=== PATIENT | female | born 1935 | race Caucasian/White ===

== ENCOUNTER 2022-01-10 04:32 | Day surgery (SDC) | payer OTHER, BC ==
[2022-01-06 09:36] VITALS: BMI 25.8
[~2022-01-10 04:32] MED LIST: BUPIVACAINE HCL/PF 0.75% 10 ML VIAL NR ONE
[2022-01-10] MEDS ORDERED: LIDOCAINE HCL/PF 1% SDV 5ML VIAL ONE ×2 (07:35→11:57)
[2022-01-10] MEDS ORDERED: DEXAMETHASONE SOD PHOSPHATE 10 MG/1 ML VIAL ONE (11:57)
[2022-01-10] MEDS ORDERED: LIDOCAINE HCL 1% PRESERVATIVE FREE - 30ML VIAL IJ ONE (13:20)
[2022-01-10] MEDS ORDERED: IOHEXOL 180 MG/1 ML ML IJ ONE (13:22)
[2022-01-10] MEDS ORDERED: BUPIVACAINE HCL/PF 0.75% 10 ML VIAL NR ONE (13:26)
[2022-01-10 14:40] VITALS: BP 162/65; PULSE 58; TEMP 98.1
== END 2022-01-10 14:12 | disposition home or self-care (01) ==
LOC: JASU-SURG 04:32
PROVIDERS: ATTEND Pain Medicine Pain Medicine
PROC: BR16YZZ Fluoroscopy of Lumbar Facet Joint(s) using Other Contrast (ICD-10-PCS; 2022-01-10)
PROC: 3E0T3BZ Introduction of Anesthetic Agent into Peripheral Nerves and Plexi, Percutaneous Approach (ICD-10-PCS; principal; 2022-01-10 13:30)
DX: M47.816 Spondylosis without myelopathy or radiculopathy, lumbar region (principal); I10 Essential (primary) hypertension
CPT/HCPCS: 76000-TC-FY; J1100

== ENCOUNTER 2022-02-14 04:19 | Day surgery (SDC) | payer OTHER, BC ==
[2022-02-13 11:02] VITALS: BMI 25.8
[2022-02-14] MEDS ORDERED: BUPIVACAINE HCL/PF 0.75% 10 ML VIAL ONE (07:16)
[2022-02-14] MEDS ORDERED: LIDOCAINE HCL/PF 1% SDV 5ML VIAL ONE (07:16)
[2022-02-14] MEDS ORDERED: LIDOCAINE HCL 1%, 10 MG/ML (50 mL VIAL) NR ONE (09:10)
[2022-02-14] MEDS ORDERED: BUPIVACAINE HCL/PF 0.75% 10 ML VIAL NR ONE (09:11)
[2022-02-14 09:41] VITALS: BP 139/79; PULSE 50; TEMP 97.4
== END 2022-02-14 10:00 | disposition home or self-care (01) ==
LOC: JASU-SURG 04:19
PROVIDERS: ATTEND Pain Medicine Pain Medicine
PROC: BR16ZZZ Fluoroscopy of Lumbar Facet Joint(s) (ICD-10-PCS; 2022-02-14)
PROC: 3E0T3BZ Introduction of Anesthetic Agent into Peripheral Nerves and Plexi, Percutaneous Approach (ICD-10-PCS; principal; 2022-02-14 09:30)
DX: M47.816 Spondylosis without myelopathy or radiculopathy, lumbar region (principal); I25.10 Atherosclerotic heart disease of native coronary artery without angina pectoris; I10 Essential (primary) hypertension; Z95.5 Presence of coronary angioplasty implant and graft
CPT/HCPCS: 76000-TC-FY

== ENCOUNTER 2022-03-14 04:48 | Day surgery (SDC) | payer OTHER, BC ==
[2022-03-09 12:05] VITALS: BMI 25.8
[2022-03-14] MEDS ORDERED: LIDOCAINE HCL/PF 1% SDV 5ML VIAL ONE (07:10)
[2022-03-14] MEDS ORDERED: BUPIVACAINE HCL/PF 0.75% 10 ML VIAL ONE (07:10)
[2022-03-14] MEDS ORDERED: LIDOCAINE HCL/PF 2% SDV 5ML VIAL ONE (07:15)
[2022-03-14] MEDS ORDERED: DEXAMETHASONE SOD PHOSPHATE 10 MG/1 ML VIAL ONE (11:18)
[2022-03-14 13:40] VITALS: BP 180/78; PULSE 51; TEMP 97.2
== END 2022-03-14 13:30 | disposition home or self-care (01) ==
LOC: JASU-SURG 04:48
PROVIDERS: ATTEND Pain Medicine Pain Medicine
DX: Z53.8 Procedure and treatment not carried out for other reasons (principal)
CPT/HCPCS: J1100

== ENCOUNTER 2022-03-17 04:41 | Day surgery (SDC) | payer OTHER, BC ==
[2022-03-16 10:24] VITALS: BMI 25.8
[2022-03-17] MEDS ORDERED: BUPIVACAINE HCL/PF 0.25% (2.5MG/ML) 10 ML VIAL ONE (07:50)
[2022-03-17] MEDS ORDERED: LIDOCAINE HCL/PF 1% SDV 5ML VIAL ONE (07:51)
[2022-03-17] MEDS ORDERED: DEXAMETHASONE SOD PHOSPHATE 10 MG/1 ML VIAL ONE (07:51)
[2022-03-17 10:22] VITALS: BP 113/78; PULSE 70; TEMP 98.3
== END 2022-03-17 15:05 | disposition home or self-care (01) ==
LOC: JASU-SURG 04:41
PROVIDERS: ATTEND Pain Medicine Pain Medicine
DX: Z53.8 Procedure and treatment not carried out for other reasons (principal)
CPT/HCPCS: J1100

== ENCOUNTER 2022-04-25 04:20 | Day surgery (SDC) | payer OTHER, BC ==
[2022-04-25] MEDS ORDERED: LIDOCAINE HCL/PF 1% SDV 5ML VIAL ONE (07:26)
[2022-04-25] MEDS ORDERED: BUPIVACAINE HCL/PF 0.75% 10 ML VIAL ONE (07:28)
[2022-04-25] MEDS ORDERED: DEXAMETHASONE SOD PHOSPHATE 10 MG/1 ML VIAL ONE (07:28)
== END 2022-04-25 08:44 | disposition home or self-care (01) ==
LOC: JASU-SURG 04:20
PROVIDERS: ATTEND Pain Medicine Pain Medicine
DX: Z53.8 Procedure and treatment not carried out for other reasons (principal)
CPT/HCPCS: J1100

== ENCOUNTER 2022-05-09 04:15 | Day surgery (SDC) | payer OTHER, BC ==
[2022-04-27 14:07] VITALS: BMI 25.8
[2022-05-09] MEDS ORDERED: BUPIVACAINE HCL/PF 0.75% 10 ML VIAL ONE (07:08)
[2022-05-09] MEDS ORDERED: LIDOCAINE HCL/PF 1% SDV 5ML VIAL ONE (07:08)
[2022-05-09] MEDS ORDERED: DEXAMETHASONE SOD PHOSPHATE 10 MG/1 ML VIAL ONE (07:09)
[2022-05-09] MEDS ORDERED: BUPIVACAINE HCL/PF 0.75% 10 ML VIAL NR ONE (08:56)
[2022-05-09] MEDS ORDERED: LIDOCAINE HCL/PF 2% SDV 5ML VIAL PNB ONE (08:56)
[2022-05-09] MEDS ORDERED: LIDOCAINE 1% P/F 10 MG/ML VIAL PNB ONE (08:56)
[2022-05-09] MEDS ORDERED: DEXAMETHASONE SOD PHOSPHATE 10 MG/1 ML VIAL IVPUSH ONE (08:56)
[2022-05-09 10:17] VITALS: TEMP 98.8
[2022-05-09 10:24] VITALS: BP 160/70; PULSE 60; RESP 18
== END 2022-05-09 10:10 | disposition home or self-care (01) ==
LOC: JASU-SURG 04:15
PROVIDERS: ATTEND Pain Medicine Pain Medicine
PROC: 3E0T3TZ Introduction of Destructive Agent into Peripheral Nerves and Plexi, Percutaneous Approach (ICD-10-PCS; principal; 2022-05-09 08:30)
DX: M47.816 Spondylosis without myelopathy or radiculopathy, lumbar region (principal)
CPT/HCPCS: 76000-TC-FY; J1100

== ENCOUNTER 2022-06-20 04:14 | Day surgery (SDC) | payer OTHER, BC ==
[2022-06-16 13:32] VITALS: BMI 25.8
[2022-06-20] MEDS ORDERED: BUPIVACAINE HCL/PF 0.75% 10 ML VIAL ONE (07:48)
[2022-06-20] MEDS ORDERED: LIDOCAINE HCL/PF 1% SDV 5ML VIAL ONE (07:48)
[2022-06-20 09:15] VITALS: RESP 20
[2022-06-20] MEDS ORDERED: LIDOCAINE HCL 1% PRESERVATIVE FREE - 30ML VIAL IJ ONE (10:38)
[2022-06-20] MEDS ORDERED: BUPIVACAINE HCL/PF 0.75% 10 ML VIAL NR ONE ×2 (10:42→10:59)
[2022-06-20] MEDS ORDERED: LIDOCAINE HCL 2% (50ML VIAL) NR ONE (10:42)
[2022-06-20] MEDS ORDERED: DEXAMETHASONE SOD PHOSPHATE 10 MG/1 ML VIAL IVPUSH ONE ×2 (10:43→11:03)
[2022-06-20 11:25] VITALS: BP 156/66; PULSE 50; TEMP 98
== END 2022-06-20 11:45 | disposition home or self-care (01) ==
LOC: JASU-SURG 04:14
PROVIDERS: ATTEND Pain Medicine Pain Medicine
PROC: 3E0T3TZ Introduction of Destructive Agent into Peripheral Nerves and Plexi, Percutaneous Approach (ICD-10-PCS; principal; 2022-06-20 10:30)
DX: M47.816 Spondylosis without myelopathy or radiculopathy, lumbar region (principal)
CPT/HCPCS: 76000-TC-FY; J1100

== ENCOUNTER 2022-08-15 04:24 | Day surgery (SDC) | payer OTHER, BC ==
[2022-08-11 15:02] VITALS: BMI 25.8
[2022-08-15] MEDS ORDERED: LIDOCAINE HCL/PF 1% SDV 5ML VIAL ONE (07:47)
[2022-08-15] MEDS ORDERED: DEXAMETHASONE SOD PHOSPHATE 10 MG/1 ML VIAL ONE (07:48)
[2022-08-15 09:12] VITALS: RESP 18
[2022-08-15] MEDS ORDERED: LIDOCAINE 1% P/F 10 MG/ML VIAL INF ONE (10:11)
[2022-08-15] MEDS ORDERED: DEXAMETHASONE SOD PHOSPHATE 10 MG/1 ML VIAL IVPUSH ONE (10:12)
[2022-08-15] MEDS ORDERED: IOHEXOL 180 MG/1 ML ML IJ ONE (10:12)
[2022-08-15 10:53] VITALS: TEMP 98
[2022-08-15 10:54] VITALS: BP 120/76; PULSE 59
== END 2022-08-15 10:55 | disposition home or self-care (01) ==
LOC: JASU-SURG 04:24
PROVIDERS: ATTEND Pain Medicine Pain Medicine
PROC: 3E0R33Z Introduction of Anti-inflammatory into Spinal Canal, Percutaneous Approach (ICD-10-PCS; 2022-08-15)
PROC: B01BYZZ Fluoroscopy of Spinal Cord using Other Contrast (ICD-10-PCS; 2022-08-15)
PROC: 3E0R3BZ Introduction of Anesthetic Agent into Spinal Canal, Percutaneous Approach (ICD-10-PCS; principal; 2022-08-15 10:30)
DX: M54.16 Radiculopathy, lumbar region (principal); M48.061 Spinal stenosis, lumbar region without neurogenic claudication
CPT/HCPCS: 76000-TC-FY; J1100

== ENCOUNTER 2022-11-07 04:24 | Day surgery (SDC) | payer OTHER, BC ==
[2022-10-19 13:33] VITALS: BMI 25.8
[~2022-11-07 04:24] MED LIST changes: -BUPIVACAINE HCL/PF 0.75% 10 ML VIAL NR ONE; +DEXAMETHASONE SOD PHOSPHATE 10 MG/1 ML VIAL IVPUSH ONE; +IOHEXOL 180 MG/1 ML ML IJ ONE; +LIDOCAINE 1% P/F 10 MG/ML VIAL INF ONE; +LIDOCAINE HCL/PF 2% SDV 5ML VIAL INF ONE
[2022-11-07] MEDS ORDERED: LIDOCAINE HCL/PF 1% SDV 5ML VIAL ONE (11:23)
[2022-11-07] MEDS ORDERED: LIDOCAINE HCL/PF 2% SDV 5ML VIAL ONE (11:23)
[2022-11-07] MEDS ORDERED: PROPOFOL 20 ML ONE (12:25)
[2022-11-07] MEDS ORDERED: DEXAMETHASONE SOD PHOSPHATE 10 MG/1 ML VIAL ONE (12:39)
[2022-11-07] MEDS ORDERED: ceFAZolin SODIUM 1 GM VIAL IVPB ONE (12:49)
[2022-11-07] MEDS ORDERED: ONDANSETRON 4 MG/2 ML VIAL ONE (12:58)
[2022-11-07] MEDS ORDERED: LIDOCAINE 1% P/F 10 MG/ML VIAL INF ONE (13:03)
[2022-11-07] MEDS ORDERED: LIDOCAINE HCL/PF 2% SDV 5ML VIAL INF ONE (13:06)
[2022-11-07] MEDS ORDERED: IOHEXOL 180 MG/1 ML ML IJ ONE (14:03)
[2022-11-07] MEDS ORDERED: DEXAMETHASONE SOD PHOSPHATE 10 MG/1 ML VIAL IVPUSH ONE (14:03)
[2022-11-07 15:08] VITALS: RESP 16
[2022-11-07 15:15] VITALS: BP 165/75; PULSE 62; TEMP 97.7
== END 2022-11-07 15:10 | disposition home or self-care (01) ==
LOC: JASU-SURG 04:24
PROVIDERS: ATTEND Pain Medicine Pain Medicine
PROC: 00NY3ZZ Release Lumbar Spinal Cord, Percutaneous Approach (ICD-10-PCS; principal; 2022-11-07 12:30)
DX: M48.062 Spinal stenosis, lumbar region with neurogenic claudication (principal)
CPT/HCPCS: 0275T; C1889; 76000-TC-FY; 88304-TC; 88311-TC; J1100

== ENCOUNTER 2023-03-15 11:12 | Emergency (ER) | payer OTHER, BC ==
[2023-03-15 11:46] VITALS: BMI 24.3
[2023-03-15] MEDS ORDERED: ACETAMINOPHEN 500 MG TABLET (FP) PO ONE (13:58)
[2023-03-15] MEDS ORDERED: KETOROLAC TROMETHAMINE 15 MG/ML VIAL IM ONE (13:58)
[2023-03-15] MEDS ORDERED: ACETAMINOPHEN 325 MG TABLET (FP) ONE (14:02)
[2023-03-15] MEDS ORDERED: KETOROLAC TROMETHAMINE 15 MG/ML VIAL ONE (14:02)
[2023-03-15 15:53] VITALS: BP 140/64; PULSE 67; RESP 18; TEMP 97.6
== END 2023-03-15 16:45 | disposition home or self-care (01) ==
LOC: JER 11:12
PROC: 3E0233Z Introduction of Anti-inflammatory into Muscle, Percutaneous Approach (ICD-10-PCS; principal; 2023-03-15)
DX: M79.604 Pain in right leg (principal); M19.90 Unspecified osteoarthritis, unspecified site; R26.81 Unsteadiness on feet
CPT/HCPCS: 99284-25

== ENCOUNTER 2023-03-16 06:00 | Day surgery (SDC) | payer OTHER, BC ==
[2023-03-16] MEDS ORDERED: ACETAMINOPHEN 500 MG TABLET (FP) PO PRN (08:57)
[2023-03-16 09:40] VITALS: BMI 25.8
[2023-03-16 11:14] VITALS: RESP 18
[2023-03-16] MEDS ORDERED: LIDOCAINE HCL 1% PRESERVATIVE FREE - 30ML VIAL IJ ONE ×2 (13:13)
[2023-03-16 15:08] VITALS: TEMP 97.5
[2023-03-16 15:11] VITALS: BP 111/49; PULSE 57
== END 2023-03-16 15:05 | disposition home or self-care (01) ==
LOC: JASU-SURG 06:00
PROVIDERS: ATTEND Pain Medicine Pain Medicine
PROC: 01HY3MZ Insertion of Neurostimulator Lead into Peripheral Nerve, Percutaneous Approach (ICD-10-PCS; principal; 2023-03-16 12:30)
DX: G89.4 Chronic pain syndrome (principal); M25.561 Pain in right knee
CPT/HCPCS: 64555; C1778

== ENCOUNTER 2023-04-12 20:02 | Inpatient (IN) | payer OTHER, BC ==
[2023-04-12 20:10] VITALS: BMI 23.1
[2023-04-12] MEDS ORDERED: ACETAMINOPHEN 1000 MG/100 ML BAG IVPB ONE (20:39)
[2023-04-12] MEDS ORDERED: LACTATED RINGERS SOLUTION 1000 ML INFUS.BAG IV ONE (20:39)
[2023-04-12] MEDS ORDERED: ACETAMINOPHEN INJECTION 100 ML IVPB ONE (20:59)
[2023-04-12 21:12] LABS: BASO % 0.4 % (0-2.0); EOS % 0.5 % (0-4.5); HEMATOCRIT 31.7 % (32.4-45.2); HEMOGLOBIN 10.4 GM/dL (10.7-15.3); LYMPH % 17.5 % (8-40); MCH 31.4 pg (25.7-33.7); MCHC 32.8 g/dl (32.0-36.0); MEAN CELL VOLUME 95.6 fl (80-96); MEAN PLT VOLUME 7.7 fl (7.5-11.1); MONO % 11.5 % (3.8-10.2); NEUT % 70.1 % (42.8-82.8); PLATELET COUNT 306 10^3/uL (134-434); RBC 3.32 M/mm3 (3.60-5.2); RDW 15.5 % (11.6-15.6); WHITE BLOOD COUNT 15.5 K/mm3 (4.0-10.0)
[2023-04-12 21:22] LABS: INR 0.99 (0.83-1.09); PROTHROMBIN TIME (PATIENT) 11.5 SEC (9.7-13.0)
[2023-04-12 21:24] LABS: ACTIVATED PTT 26.9 SECONDS (25.2-36.5)
[2023-04-12 21:57] LABS: POTASSIUM 4.7 mmol/L (3.5-5.1)
[2023-04-12 21:59] LABS: CALCIUM 8.9 mg/dL (8.5-10.1)
[2023-04-12 22:00] LABS: ALBUMIN 2.6 g/dl (3.4-5.0); BLOOD UREA NITROGEN 40.2 mg/dL (7-18)
[2023-04-12 22:03] LABS: CREATININE 1.8 mg/dL (0.55-1.3)
[2023-04-12 22:04] LABS: BILIRUBIN,TOTAL 0.4 mg/dL (0.2-1)
[2023-04-12 22:05] LABS: TOT PROT 5.9 g/dl (6.4-8.2)
[2023-04-12] MEDS ORDERED: PIPERACILLIN/TAZOB 4.5 GM 4.5 GM in DEXTROSE 5%-WATER 100 ML IVPB ONE (22:11)
[2023-04-12] MEDS ORDERED: PIPERACILLIN/TAZOB 4.5 GM 4.5 GM/100 ML BAG IVPB ONE (22:16)
[2023-04-12 23:48] LABS: EPI CELLS >36 /uL (0-25.1); HYALINE CASTS 745 /uL (0-3.1); URINE APPEARANCE TURBID; URINE BACTERIA 5595 /uL (0-1359); URINE BILIRUBIN NEGATIVE (NEGATIVE); URINE COLOR YELLOW; URINE GLUCOSE (UA) NEGATIVE (NEGATIVE); URINE KETONE NEGATIVE (NEGATIVE); URINE LEUK ESTERASE 3+ (NEGATIVE); URINE NITRITE POSITIVE (NEGATIVE); URINE PROTEIN 2+ (NEGATIVE); URINE UROBILINOGEN 0.2 mg/dL (0.2-1.0); URINE WBC 37470 /uL (0-25.8)
[2023-04-13] MEDS ORDERED: SODIUM CHLORIDE 1,000 ML IV SCH (02:15)
[2023-04-13] MEDS ORDERED: PIPERACILLIN/TAZOB 2.25 GM 2.25 GM in DEXTROSE 5%-WATER - 50 ML IVPB SCH ×3 (03:30→18:00)
[2023-04-13 08:51] LABS: BASO % 0.6 % (0-2.0); HEMATOCRIT 33.6 % (32.4-45.2); HEMOGLOBIN 10.9 GM/dL (10.7-15.3); LYMPH % 13.6 % (8-40); MCH 31.6 pg (25.7-33.7); MCHC 32.5 g/dl (32.0-36.0); MEAN CELL VOLUME 97.3 fl (80-96); MEAN PLT VOLUME 8.4 fl (7.5-11.1); MONO % 8.2 % (3.8-10.2); NEUT % 75.6 % (42.8-82.8); PLATELET COUNT 326 10^3/uL (134-434); RBC 3.45 M/mm3 (3.60-5.2); RDW 15.6 % (11.6-15.6); WHITE BLOOD COUNT 14.3 K/mm3 (4.0-10.0)
[2023-04-13 09:08] LABS: MAGNESIUM 2.2 mg/dL (1.8-2.4)
[2023-04-13 09:13] LABS: PHOSPHOROUS 3.4 mg/dL (2.5-4.9)
[2023-04-13] MEDS ORDERED: SERTRALINE HCL 25 MG TABLET (FP) PO SCH (10:00)
[2023-04-13] MEDS ORDERED: LACTOBACILLUS ACIDOPHILUS 1 TABLET PO SCH (10:00)
[2023-04-13] MEDS ORDERED: CALCIUM 500MG/VIT-D 200 UNITS COMBO TABLET (FP) PO SCH (10:00)
[2023-04-13] MEDS ORDERED: CHOLECALCIFEROL (VIT D3) 1,000 UNIT (25 MCG) TABLET PO SCH (10:00)
[2023-04-13] MEDS ORDERED: GABAPENTIN 300 MG CAPSULE PO SCH (10:00)
[2023-04-13 21:36] LABS: CALCIUM 8.8 mg/dL (8.5-10.1)
[2023-04-13] MEDS ORDERED: ATORVASTATIN CA 40 MG TABLET (FP) PO SCH (22:00)
[2023-04-13] MEDS ORDERED: amLODIPine BESYLATE 2.5 MG TABLET (FP) PO SCH (22:00)
[2023-04-13] MEDS ORDERED: ATENOLOL 50 MG TABLET (FP) PO SCH (22:00)
[2023-04-13] MEDS ORDERED: PANTOPRAZOLE SODIUM 40 MG VIAL IVPUSH SCH (22:00)
[2023-04-13] MEDS ORDERED: FAMOTIDINE 10 MG TABLET PO SCH (22:00)
[2023-04-14] MEDS ORDERED: SODIUM CHLORIDE 1,000 ML IV SCH (00:25)
[2023-04-14] MEDS: PIPERACILLIN/TAZOB 2.25 GM 2.25 GM in DEXTROSE 5%-WATER - 50 ML IVPB SCH ×5 (01:54→17:32)
[2023-04-14] MEDS ORDERED: PIPERACILLIN/TAZOB 2.25 GM 2.25 GM in DEXTROSE 5%-WATER - 50 ML IVPB SCH (03:00)
[2023-04-14] MEDS: SERTRALINE HCL 25 MG TABLET (FP) PO SCH (09:13)
[2023-04-14] MEDS: CHOLECALCIFEROL (VIT D3) 1,000 UNIT (25 MCG) TABLET PO SCH (09:13)
[2023-04-14] MEDS: PANTOPRAZOLE 40 MG TABLET PO SCH (09:14)
[2023-04-14] MEDS: GABAPENTIN 300 MG CAPSULE PO SCH (09:14)
[2023-04-14] MEDS: CALCIUM 500MG/VIT-D 200 UNITS COMBO TABLET (FP) PO SCH (09:14)
[2023-04-14] MEDS: LACTOBACILLUS ACIDOPHILUS 1 TABLET PO SCH (09:14)
[2023-04-14 09:59] LABS: BASO % 0.4 % (0-2.0); EOS % 2.4 % (0-4.5); HEMATOCRIT 30.8 % (32.4-45.2); HEMOGLOBIN 10.4 GM/dL (10.7-15.3); LYMPH % 16.3 % (8-40); MCHC 33.6 g/dl (32.0-36.0); MEAN CELL VOLUME 95.1 fl (80-96); MEAN PLT VOLUME 7.9 fl (7.5-11.1); MONO % 4.9 % (3.8-10.2); PLATELET COUNT 315 10^3/uL (134-434); RBC 3.24 M/mm3 (3.60-5.2); RDW 15.3 % (11.6-15.6); WHITE BLOOD COUNT 11.5 K/mm3 (4.0-10.0)
[2023-04-14] MEDS ORDERED: CEFTRIAXONE 1 GM in DEXTROSE 5%-WATER - 50 ML IVPB SCH (10:00)
[2023-04-14 10:19] LABS: POTASSIUM 3.9 mmol/L (3.5-5.1)
[2023-04-14 10:25] LABS: ALBUMIN 2.4 g/dl (3.4-5.0); BLOOD UREA NITROGEN 21.4 mg/dL (7-18); MAGNESIUM 1.9 mg/dL (1.8-2.4)
[2023-04-14 10:26] LABS: PHOSPHOROUS 2.6 mg/dL (2.5-4.9)
[2023-04-14 10:28] LABS: BILIRUBIN,TOTAL 0.5 mg/dL (0.2-1); CREATININE 0.9 mg/dL (0.55-1.3); TOT PROT 5.7 g/dl (6.4-8.2)
[2023-04-14] MEDS: MEROPENEM 1 GM in DEXTROSE 5%-WATER 100 ML IVPB SCH (17:48)
[2023-04-14 19:22] LABS: HEMATOCRIT 28.5 % (32.4-45.2); HEMOGLOBIN 9.7 GM/dL (10.7-15.3); MCH 32.3 pg (25.7-33.7); MCHC 33.9 g/dl (32.0-36.0); MEAN CELL VOLUME 95.2 fl (80-96); MEAN PLT VOLUME 8.1 fl (7.5-11.1); PLATELET COUNT 292 10^3/uL (134-434); RDW 15.5 % (11.6-15.6); WHITE BLOOD COUNT 11.3 K/mm3 (4.0-10.0)
[2023-04-14] MEDS: ATORVASTATIN CA 40 MG TABLET (FP) PO SCH (21:59)
[2023-04-14] MEDS: amLODIPine BESYLATE 2.5 MG TABLET (FP) PO SCH (22:00)
[2023-04-14] MEDS: ATENOLOL 50 MG TABLET (FP) PO SCH (22:00)
[2023-04-15] MEDS: MEROPENEM 1 GM in DEXTROSE 5%-WATER 100 ML IVPB SCH ×3 (02:08→17:07)
[2023-04-15] MEDS: PANTOPRAZOLE 40 MG TABLET PO SCH (10:14)
[2023-04-15] MEDS: CALCIUM 500MG/VIT-D 200 UNITS COMBO TABLET (FP) PO SCH (10:14)
[2023-04-15] MEDS: LACTOBACILLUS ACIDOPHILUS 1 TABLET PO SCH (10:14)
[2023-04-15] MEDS: CHOLECALCIFEROL (VIT D3) 1,000 UNIT (25 MCG) TABLET PO SCH (10:15)
[2023-04-15] MEDS: GABAPENTIN 300 MG CAPSULE PO SCH (10:15)
[2023-04-15] MEDS: SERTRALINE HCL 25 MG TABLET (FP) PO SCH (10:15)
[2023-04-15] MEDS: ATORVASTATIN CA 40 MG TABLET (FP) PO SCH (21:26)
[2023-04-15] MEDS: ATENOLOL 50 MG TABLET (FP) PO SCH (21:26)
[2023-04-15] MEDS: amLODIPine BESYLATE 2.5 MG TABLET (FP) PO SCH (21:26)
[2023-04-16] MEDS: MEROPENEM 1 GM in DEXTROSE 5%-WATER 100 ML IVPB SCH ×3 (01:54→17:19)
[2023-04-16 10:33] LABS: BASO % 0.8 % (0-2.0); EOS % 1.8 % (0-4.5); HEMOGLOBIN 10.7 GM/dL (10.7-15.3); LYMPH % 20.5 % (8-40); MCH 31.8 pg (25.7-33.7); MCHC 33.4 g/dl (32.0-36.0); MEAN CELL VOLUME 95.2 fl (80-96); MEAN PLT VOLUME 7.7 fl (7.5-11.1); MONO % 10.2 % (3.8-10.2); NEUT % 66.7 % (42.8-82.8); PLATELET COUNT 334 10^3/uL (134-434); RBC 3.36 M/mm3 (3.60-5.2); RDW 15.5 % (11.6-15.6); WHITE BLOOD COUNT 10.6 K/mm3 (4.0-10.0)
[2023-04-16 10:50] LABS: POTASSIUM 4.1 mmol/L (3.5-5.1)
[2023-04-16 10:51] LABS: ALBUMIN 2.2 g/dl (3.4-5.0)
[2023-04-16 10:54] LABS: CALCIUM 8.6 mg/dL (8.5-10.1)
[2023-04-16 10:55] LABS: BLOOD UREA NITROGEN 19.6 mg/dL (7-18)
[2023-04-16 10:56] LABS: BILIRUBIN,TOTAL 0.5 mg/dL (0.2-1)
[2023-04-16 10:57] LABS: TOT PROT 5.6 g/dl (6.4-8.2)
[2023-04-16 10:59] LABS: CREATININE 0.9 mg/dL (0.55-1.3)
[2023-04-16] MEDS: CHOLECALCIFEROL (VIT D3) 1,000 UNIT (25 MCG) TABLET PO SCH (11:34)
[2023-04-16] MEDS: PANTOPRAZOLE 40 MG TABLET PO SCH (11:34)
[2023-04-16] MEDS: GABAPENTIN 300 MG CAPSULE PO SCH (11:34)
[2023-04-16] MEDS: LACTOBACILLUS ACIDOPHILUS 1 TABLET PO SCH (11:35)
[2023-04-16] MEDS: SERTRALINE HCL 25 MG TABLET (FP) PO SCH (11:35)
[2023-04-16] MEDS: CALCIUM 500MG/VIT-D 200 UNITS COMBO TABLET (FP) PO SCH (17:27)
[2023-04-16] MEDS: amLODIPine BESYLATE 2.5 MG TABLET (FP) PO SCH (22:00)
[2023-04-16] MEDS: ATENOLOL 50 MG TABLET (FP) PO SCH (22:00)
[2023-04-16] MEDS: ATORVASTATIN CA 40 MG TABLET (FP) PO SCH (22:00)
[2023-04-17] MEDS: MEROPENEM 1 GM in DEXTROSE 5%-WATER 100 ML IVPB SCH ×3 (02:03→17:00)
[2023-04-17 07:10] LABS: HEMATOCRIT 31.7 % (32.4-45.2); HEMOGLOBIN 10.3 GM/dL (10.7-15.3); MCH 31.3 pg (25.7-33.7); MCHC 32.5 g/dl (32.0-36.0); MEAN CELL VOLUME 96.2 fl (80-96); MEAN PLT VOLUME 7.8 fl (7.5-11.1); PLATELET COUNT 348 10^3/uL (134-434); RBC 3.29 M/mm3 (3.60-5.2); RDW 14.9 % (11.6-15.6); WHITE BLOOD COUNT 12.1 K/mm3 (4.0-10.0)
[2023-04-17] MEDS: PANTOPRAZOLE 40 MG TABLET PO SCH (09:36)
[2023-04-17] MEDS: SERTRALINE HCL 25 MG TABLET (FP) PO SCH (09:36)
[2023-04-17] MEDS: CHOLECALCIFEROL (VIT D3) 1,000 UNIT (25 MCG) TABLET PO SCH (09:37)
[2023-04-17] MEDS: LACTOBACILLUS ACIDOPHILUS 1 TABLET PO SCH (09:37)
[2023-04-17] MEDS: CALCIUM 500MG/VIT-D 200 UNITS COMBO TABLET (FP) PO SCH (09:37)
[2023-04-17] MEDS: GABAPENTIN 300 MG CAPSULE PO SCH (09:37)
[2023-04-17] MEDS: amLODIPine BESYLATE 2.5 MG TABLET (FP) PO SCH (21:11)
[2023-04-17] MEDS: ATENOLOL 50 MG TABLET (FP) PO SCH (21:11)
[2023-04-17] MEDS: ATORVASTATIN CA 40 MG TABLET (FP) PO SCH (21:11)
[2023-04-18] MEDS: MEROPENEM 1 GM in DEXTROSE 5%-WATER 100 ML IVPB SCH ×2 (02:47→10:01)
[2023-04-18 06:38] LABS: HEMATOCRIT 29.7 % (32.4-45.2); HEMOGLOBIN 9.8 GM/dL (10.7-15.3); MCHC 33.1 g/dl (32.0-36.0); MEAN CELL VOLUME 96.6 fl (80-96); MEAN PLT VOLUME 7.9 fl (7.5-11.1); PLATELET COUNT 334 10^3/uL (134-434); RBC 3.08 M/mm3 (3.60-5.2); WHITE BLOOD COUNT 12.6 K/mm3 (4.0-10.0)
[2023-04-18] MEDS: CHOLECALCIFEROL (VIT D3) 1,000 UNIT (25 MCG) TABLET PO SCH (10:00)
[2023-04-18] MEDS: PANTOPRAZOLE 40 MG TABLET PO SCH (10:00)
[2023-04-18] MEDS: CALCIUM 500MG/VIT-D 200 UNITS COMBO TABLET (FP) PO SCH (10:01)
[2023-04-18] MEDS: GABAPENTIN 300 MG CAPSULE PO SCH (10:01)
[2023-04-18] MEDS: LACTOBACILLUS ACIDOPHILUS 1 TABLET PO SCH (10:01)
[2023-04-18] MEDS: SERTRALINE HCL 25 MG TABLET (FP) PO SCH (10:01)
[2023-04-18 15:31] VITALS: BP 140/67; PULSE 72; RESP 20; TEMP 97.3
== END 2023-04-18 17:26 | DRG 378 ==
LOC: JER 20:02 → JERBED 23:45 → J4W 04-13 05:52 → J5S 04-14 00:23 → J7W 04-16 18:33
PROVIDERS: ADMIT Internal Medicine; ATTEND Internal Medicine
DX: K92.2 Gastrointestinal hemorrhage, unspecified (principal); N39.0 Urinary tract infection, site not specified; I10 Essential (primary) hypertension; E78.5 Hyperlipidemia, unspecified; M48.00 Spinal stenosis, site unspecified; Z96.651 Presence of right artificial knee joint; B96.20 Unspecified Escherichia coli [E. coli] as the cause of diseases classified elsewhere; M06.8A Other specified rheumatoid arthritis, other specified site; G89.29 Other chronic pain; I73.89 Other specified peripheral vascular diseases; K57.90 Diverticulosis of intestine, part unspecified, without perforation or abscess without bleeding; M54.50 Low back pain, unspecified; M47.896 Other spondylosis, lumbar region; M10.9 Gout, unspecified; K21.9 Gastro-esophageal reflux disease without esophagitis; K22.2 Esophageal obstruction; K76.89 Other specified diseases of liver; K80.80 Other cholelithiasis without obstruction; M79.7 Fibromyalgia; G62.9 Polyneuropathy, unspecified; D64.9 Anemia, unspecified; F32.A Depression, unspecified; D72.829 Elevated white blood cell count, unspecified
CPT/HCPCS: 36415; 36569; 70450-TC; 71045-TC-FY; 71250-TC; 74176-TC; 74230-TC-FY; 77001-TC-FY; 80048; 80053; 81003; 82272; 82728; 83540; 83550; 83735; 84100; 84484; 85025; 85027; 85045; 85610; 85730; 86850; 86900; 86901; 87070; 87081; 87086; 87186; 87205; 87635; 87899; 92611-GN; 93005; 93010; 93971-TC; 97116-GP; 97162-GP; 99285-25; C1751

== ENCOUNTER 2023-09-04 15:22 | Inpatient (IN) | payer OTHER, BC ==
[2023-09-04] MEDS ORDERED: ATENOLOL 25 MG TABLET (FP) PO ONE (16:50)
[2023-09-04] MEDS ORDERED: ATENOLOL 25 MG TABLET (FP) ONE (17:21)
[2023-09-04 17:28] LABS: BASO % 1.1 % (0-2.0); EOS % 4.6 % (0-4.5); HEMATOCRIT 34.4 % (32.4-45.2); HEMOGLOBIN 11.3 GM/dL (10.7-15.3); LYMPH % 30.4 % (8-40); MCH 29.5 pg (25.7-33.7); MCHC 32.8 g/dl (32.0-36.0); MEAN CELL VOLUME 90.1 fl (80-96); MEAN PLT VOLUME 8.2 fl (7.5-11.1); NEUT % 52.9 % (42.8-82.8); PLATELET COUNT 276 10^3/uL (134-434); RBC 3.82 M/mm3 (3.60-5.2); RDW 17.6 % (11.6-15.6); WHITE BLOOD COUNT 8.8 K/mm3 (4.0-10.0)
[2023-09-04 17:32] LABS: EPI CELLS 10 /uL (0-25.1); HYALINE CASTS 1 /uL (0-3.1); PH,URINE 6.5 (5.0-8.0); URINE APPEARANCE TURBID; URINE BACTERIA 127 /uL (0-1359); URINE BILIRUBIN NEGATIVE (NEGATIVE); URINE COLOR YELLOW; URINE GLUCOSE (UA) NEGATIVE (NEGATIVE); URINE KETONE NEGATIVE (NEGATIVE); URINE LEUK ESTERASE 3+ (NEGATIVE); URINE NITRITE NEGATIVE (NEGATIVE); URINE PROTEIN 1+ (NEGATIVE); URINE RBC 2549 /uL (0-23.9); URINE UROBILINOGEN 0.2 mg/dL (0.2-1.0); URINE WBC 3347 /uL (0-25.8)
[2023-09-04 17:55] LABS: POTASSIUM 4.1 mmol/L (3.5-5.1)
[2023-09-04 17:56] LABS: CALCIUM 9.6 mg/dL (8.5-10.1)
[2023-09-04 17:57] LABS: BLOOD UREA NITROGEN 28.4 mg/dL (7-18)
[2023-09-04 18:00] LABS: CREATININE 0.7 mg/dL (0.55-1.3)
[2023-09-04] MEDS ORDERED: MEROPENEM 1 GM in DEXTROSE 5%-WATER 100 ML IVPB ONE (18:18)
[2023-09-04] MEDS: ERTAPENEM SODIUM 1 GM in SODIUM CHLORIDE 50 ML IVPB SCH (22:30)
[2023-09-04] MEDS ORDERED: amLODIPine BESYLATE 2.5 MG TABLET (FP) ONE (23:18)
[2023-09-04] MEDS ORDERED: LOSARTAN POTASSIUM 50 MG TABLET ONE (23:18)
[2023-09-04] MEDS ORDERED: ATORVASTATIN CA 40 MG TABLET (FP) ONE (23:18)
[2023-09-04] MEDS: ATORVASTATIN CA 40 MG TABLET (FP) PO SCH (23:19)
[2023-09-04] MEDS: LOSARTAN POTASSIUM 50 MG TABLET PO ONE ×2 (23:19→23:37)
[2023-09-04] MEDS: amLODIPine BESYLATE 2.5 MG TABLET (FP) PO ONE ×2 (23:19→23:38)
[2023-09-05] MEDS ORDERED: ERTAPENEM SODIUM 1 GM VIAL ONE (00:20)
[2023-09-05 07:34] LABS: HEMATOCRIT 31.9 % (32.4-45.2); HEMOGLOBIN 10.3 GM/dL (10.7-15.3); MCH 29.3 pg (25.7-33.7); MCHC 32.5 g/dl (32.0-36.0); MEAN CELL VOLUME 90.3 fl (80-96); MEAN PLT VOLUME 8.4 fl (7.5-11.1); PLATELET COUNT 268 10^3/uL (134-434); RBC 3.53 M/mm3 (3.60-5.2); RDW 17.4 % (11.6-15.6); WHITE BLOOD COUNT 7.9 K/mm3 (4.0-10.0)
[2023-09-05] MEDS ORDERED: LOSARTAN POTASSIUM 25 MG TABLET PO SCH (10:00)
[2023-09-05] MEDS ORDERED: ERTAPENEM SODIUM 1 GM in SODIUM CHLORIDE 50 ML IVPB SCH (10:00)
[2023-09-05 10:02] VITALS: BMI 24.0
[2023-09-05] MEDS: ERTAPENEM SODIUM 1 GM in SODIUM CHLORIDE 50 ML IVPB SCH (10:40)
[2023-09-05] MEDS: ALLOPURINOL 300 MG TABLET (FP) PO SCH (10:41)
[2023-09-05] MEDS: GABAPENTIN 300 MG CAPSULE PO SCH ×2 (10:41→22:13)
[2023-09-05] MEDS: SERTRALINE HCL 25 MG TABLET (FP) PO SCH (10:41)
[2023-09-05] MEDS: LOSARTAN POTASSIUM 50 MG TABLET PO SCH (10:41)
[2023-09-05] MEDS: AMOX TR/POT CLAV 500MG/125MG TABLETS (FP) PO SCH (17:03)
[2023-09-05] MEDS: ATENOLOL 25 MG TABLET (FP) PO SCH (22:13)
[2023-09-05] MEDS: ATORVASTATIN CA 40 MG TABLET (FP) PO SCH (22:13)
[2023-09-05] MEDS: FAMOTIDINE 40 MG TABLET PO SCH (22:13)
[2023-09-06 07:35] LABS: BASO % 1.1 % (0-2.0); EOS % 5.2 % (0-4.5); HEMATOCRIT 30.5 % (32.4-45.2); LYMPH % 41.5 % (8-40); MCH 29.5 pg (25.7-33.7); MCHC 32.7 g/dl (32.0-36.0); MEAN PLT VOLUME 8.1 fl (7.5-11.1); MONO % 11.7 % (3.8-10.2); NEUT % 40.5 % (42.8-82.8); PLATELET COUNT 252 10^3/uL (134-434); RBC 3.39 M/mm3 (3.60-5.2); RDW 17.4 % (11.6-15.6); WHITE BLOOD COUNT 7.7 K/mm3 (4.0-10.0)
[2023-09-06] MEDS: AMOX TR/POT CLAV 500MG/125MG TABLETS (FP) PO SCH ×2 (08:32→17:55)
[2023-09-06 08:34] LABS: CALCIUM 9.3 mg/dL (8.5-10.1)
[2023-09-06 08:36] LABS: ALBUMIN 2.5 g/dl (3.4-5.0); BLOOD UREA NITROGEN 26.5 mg/dL (7-18)
[2023-09-06 08:37] LABS: CREATININE 0.7 mg/dL (0.55-1.3)
[2023-09-06 08:39] LABS: BILIRUBIN,TOTAL 0.4 mg/dL (0.2-1); TOT PROT 6.1 g/dl (6.4-8.2)
[2023-09-06] MEDS: ALLOPURINOL 300 MG TABLET (FP) PO SCH (10:21)
[2023-09-06] MEDS: GABAPENTIN 300 MG CAPSULE PO SCH ×2 (10:21→21:25)
[2023-09-06] MEDS: SERTRALINE HCL 25 MG TABLET (FP) PO SCH (10:22)
[2023-09-06] MEDS: LOSARTAN POTASSIUM 50 MG TABLET PO SCH (10:22)
[2023-09-06] MEDS ORDERED: FUROSEMIDE 40 MG/4 ML INJECTABLE VIAL IVPUSH ONE (15:10)
[2023-09-06] MEDS: ATORVASTATIN CA 40 MG TABLET (FP) PO SCH (21:24)
[2023-09-06] MEDS: FAMOTIDINE 40 MG TABLET PO SCH (21:25)
[2023-09-06] MEDS: ATENOLOL 25 MG TABLET (FP) PO SCH (21:25)
[2023-09-07] MEDS: SERTRALINE HCL 25 MG TABLET (FP) PO SCH (09:14)
[2023-09-07] MEDS: GABAPENTIN 300 MG CAPSULE PO SCH ×2 (09:14→22:57)
[2023-09-07] MEDS: LOSARTAN POTASSIUM 50 MG TABLET PO SCH (09:14)
[2023-09-07] MEDS: AMOX TR/POT CLAV 500MG/125MG TABLETS (FP) PO SCH ×2 (09:14→17:32)
[2023-09-07] MEDS: ALLOPURINOL 300 MG TABLET (FP) PO SCH (09:15)
[2023-09-07] MEDS ORDERED: ACETAMINOPHEN 325 MG TABLET (FP) PO PRN (11:56)
[2023-09-07] MEDS: FAMOTIDINE 40 MG TABLET PO SCH (22:57)
[2023-09-07] MEDS: ATORVASTATIN CA 40 MG TABLET (FP) PO SCH (22:57)
[2023-09-07] MEDS: ATENOLOL 25 MG TABLET (FP) PO SCH (22:57)
[2023-09-08] MEDS: ALBUTEROL SO4 HFA INHALER IH PRN (06:33)
[2023-09-08] MEDS: SERTRALINE HCL 25 MG TABLET (FP) PO SCH (09:25)
[2023-09-08] MEDS: ALLOPURINOL 300 MG TABLET (FP) PO SCH (09:25)
[2023-09-08] MEDS: GABAPENTIN 300 MG CAPSULE PO SCH ×2 (09:25→21:34)
[2023-09-08] MEDS: AMOX TR/POT CLAV 500MG/125MG TABLETS (FP) PO SCH ×2 (09:25→17:46)
[2023-09-08] MEDS: LOSARTAN POTASSIUM 50 MG TABLET PO SCH (09:25)
[2023-09-08] MEDS: ATORVASTATIN CA 40 MG TABLET (FP) PO SCH (21:34)
[2023-09-08] MEDS: FAMOTIDINE 40 MG TABLET PO SCH (21:34)
[2023-09-08] MEDS: ATENOLOL 25 MG TABLET (FP) PO SCH (21:34)
[2023-09-09] MEDS: ALBUTEROL SO4 HFA INHALER IH PRN (06:43)
[2023-09-09] MEDS: SERTRALINE HCL 25 MG TABLET (FP) PO SCH (09:01)
[2023-09-09] MEDS: GABAPENTIN 300 MG CAPSULE PO SCH ×2 (09:01→21:56)
[2023-09-09] MEDS: AMOX TR/POT CLAV 500MG/125MG TABLETS (FP) PO SCH ×2 (09:01→17:18)
[2023-09-09] MEDS: LOSARTAN POTASSIUM 50 MG TABLET PO SCH (09:01)
[2023-09-09] MEDS: ALLOPURINOL 300 MG TABLET (FP) PO SCH (09:02)
[2023-09-09] MEDS: ATORVASTATIN CA 40 MG TABLET (FP) PO SCH (21:56)
[2023-09-09] MEDS: ATENOLOL 25 MG TABLET (FP) PO SCH (21:56)
[2023-09-09] MEDS: FAMOTIDINE 40 MG TABLET PO SCH (21:56)
[2023-09-10] MEDS: LOSARTAN POTASSIUM 50 MG TABLET PO SCH (10:04)
[2023-09-10] MEDS: GABAPENTIN 300 MG CAPSULE PO SCH ×2 (10:05→21:51)
[2023-09-10] MEDS: ALLOPURINOL 300 MG TABLET (FP) PO SCH (10:06)
[2023-09-10] MEDS: SERTRALINE HCL 25 MG TABLET (FP) PO SCH (10:06)
[2023-09-10] MEDS: ATORVASTATIN CA 40 MG TABLET (FP) PO SCH (21:51)
[2023-09-10] MEDS: ATENOLOL 25 MG TABLET (FP) PO SCH (21:54)
[2023-09-10] MEDS: FAMOTIDINE 40 MG TABLET PO SCH (21:54)
[2023-09-11] MEDS: GABAPENTIN 300 MG CAPSULE PO SCH ×2 (09:48→23:09)
[2023-09-11] MEDS: LOSARTAN POTASSIUM 50 MG TABLET PO SCH (09:52)
[2023-09-11] MEDS: ALBUTEROL SO4 HFA INHALER IH PRN (09:52)
[2023-09-11] MEDS: ALLOPURINOL 300 MG TABLET (FP) PO SCH (09:53)
[2023-09-11] MEDS: SERTRALINE HCL 25 MG TABLET (FP) PO SCH (09:53)
[2023-09-11] MEDS: ATORVASTATIN CA 40 MG TABLET (FP) PO SCH (23:09)
[2023-09-11] MEDS: FAMOTIDINE 40 MG TABLET PO SCH (23:13)
[2023-09-11] MEDS: ATENOLOL 25 MG TABLET (FP) PO SCH (23:13)
[2023-09-12 09:01] LABS: HEMOGLOBIN 9.6 GM/dL (10.7-15.3); MCH 30.1 pg (25.7-33.7); MCHC 32.9 g/dl (32.0-36.0); MEAN CELL VOLUME 91.3 fl (80-96); MEAN PLT VOLUME 8.3 fl (7.5-11.1); PLATELET COUNT 283 10^3/uL (134-434); RBC 3.18 M/mm3 (3.60-5.2); RDW 16.9 % (11.6-15.6); WHITE BLOOD COUNT 8.9 K/mm3 (4.0-10.0)
[2023-09-12 09:08] LABS: POTASSIUM 4.3 mmol/L (3.5-5.1)
[2023-09-12 09:09] LABS: CALCIUM 9.3 mg/dL (8.5-10.1)
[2023-09-12 09:10] LABS: BLOOD UREA NITROGEN 26.5 mg/dL (7-18)
[2023-09-12 09:14] LABS: CREATININE 0.7 mg/dL (0.55-1.3)
[2023-09-12] MEDS: SERTRALINE HCL 25 MG TABLET (FP) PO SCH (10:04)
[2023-09-12] MEDS: GABAPENTIN 300 MG CAPSULE PO SCH ×2 (10:04→22:27)
[2023-09-12] MEDS: LOSARTAN POTASSIUM 50 MG TABLET PO SCH (10:04)
[2023-09-12] MEDS: ALLOPURINOL 300 MG TABLET (FP) PO SCH (10:04)
[2023-09-12] MEDS: ATORVASTATIN CA 40 MG TABLET (FP) PO SCH (22:27)
[2023-09-12] MEDS: FAMOTIDINE 40 MG TABLET PO SCH (22:29)
[2023-09-12] MEDS: ATENOLOL 25 MG TABLET (FP) PO SCH (22:29)
[2023-09-13] MEDS: GABAPENTIN 300 MG CAPSULE PO SCH ×2 (09:41→21:15)
[2023-09-13] MEDS: LOSARTAN POTASSIUM 50 MG TABLET PO SCH (09:41)
[2023-09-13] MEDS: ALLOPURINOL 300 MG TABLET (FP) PO SCH (09:41)
[2023-09-13] MEDS: SERTRALINE HCL 25 MG TABLET (FP) PO SCH (09:41)
[2023-09-13 11:54] LABS: HEMATOCRIT 30.8 % (32.4-45.2); HEMOGLOBIN 9.9 GM/dL (10.7-15.3); MCH 29.4 pg (25.7-33.7); MCHC 32.2 g/dl (32.0-36.0); MEAN CELL VOLUME 91.3 fl (80-96); MEAN PLT VOLUME 8.4 fl (7.5-11.1); PLATELET COUNT 332 10^3/uL (134-434); RBC 3.37 M/mm3 (3.60-5.2); RDW 16.4 % (11.6-15.6); WHITE BLOOD COUNT 7.9 K/mm3 (4.0-10.0)
[2023-09-13 12:00] LABS: EPI CELLS 7 /uL (0-25.1); HYALINE CASTS 0 /uL (0-3.1); PH,URINE 6.5 (5.0-8.0); URINE APPEARANCE TURBID; URINE BACTERIA 184 /uL (0-1359); URINE BILIRUBIN NEGATIVE (NEGATIVE); URINE COLOR YELLOW; URINE GLUCOSE (UA) NEGATIVE (NEGATIVE); URINE KETONE NEGATIVE (NEGATIVE); URINE LEUK ESTERASE 3+ (NEGATIVE); URINE NITRITE NEGATIVE (NEGATIVE); URINE PROTEIN 1+ (NEGATIVE); URINE RBC 126 /uL (0-23.9); URINE UROBILINOGEN 0.2 mg/dL (0.2-1.0); URINE WBC 5099 /uL (0-25.8)
[2023-09-13 12:20] LABS: POTASSIUM 4.6 mmol/L (3.5-5.1)
[2023-09-13 12:21] LABS: CALCIUM 9.5 mg/dL (8.5-10.1)
[2023-09-13 12:22] LABS: BLOOD UREA NITROGEN 23.1 mg/dL (7-18)
[2023-09-13 12:25] LABS: CREATININE 0.7 mg/dL (0.55-1.3)
[2023-09-13] MEDS: CEFTRIAXONE 1 GM in DEXTROSE 5%-WATER - 50 ML IVPB SCH (17:02)
[2023-09-13] MEDS: FUROSEMIDE 40 MG TABLET (FP) PO SCH (17:03)
[2023-09-13] MEDS: ATORVASTATIN CA 40 MG TABLET (FP) PO SCH (21:15)
[2023-09-13] MEDS: FAMOTIDINE 40 MG TABLET PO SCH (21:16)
[2023-09-13] MEDS: ATENOLOL 25 MG TABLET (FP) PO SCH (21:16)
[2023-09-14 08:54] LABS: HEMATOCRIT 31.2 % (32.4-45.2); HEMOGLOBIN 10.3 GM/dL (10.7-15.3); MCH 29.9 pg (25.7-33.7); MEAN CELL VOLUME 90.7 fl (80-96); MEAN PLT VOLUME 8.1 fl (7.5-11.1); PLATELET COUNT 347 10^3/uL (134-434); RBC 3.44 M/mm3 (3.60-5.2); RDW 16.3 % (11.6-15.6); WHITE BLOOD COUNT 7.9 K/mm3 (4.0-10.0)
[2023-09-14 09:19] LABS: POTASSIUM 4.6 mmol/L (3.5-5.1)
[2023-09-14 09:22] LABS: CALCIUM 9.2 mg/dL (8.5-10.1)
[2023-09-14 09:23] LABS: BLOOD UREA NITROGEN 21.2 mg/dL (7-18)
[2023-09-14 09:26] LABS: CREATININE 0.8 mg/dL (0.55-1.3)
[2023-09-14] MEDS: FUROSEMIDE 40 MG TABLET (FP) PO SCH (10:31)
[2023-09-14] MEDS: GABAPENTIN 300 MG CAPSULE PO SCH ×2 (10:31→22:13)
[2023-09-14] MEDS: LOSARTAN POTASSIUM 50 MG TABLET PO SCH (10:31)
[2023-09-14] MEDS: SERTRALINE HCL 25 MG TABLET (FP) PO SCH (10:31)
[2023-09-14] MEDS: ALLOPURINOL 300 MG TABLET (FP) PO SCH (10:32)
[2023-09-14] MEDS: CEFTRIAXONE 1 GM in DEXTROSE 5%-WATER - 50 ML IVPB SCH (10:32)
[2023-09-14] MEDS: FAMOTIDINE 40 MG TABLET PO SCH (22:12)
[2023-09-14] MEDS: ATORVASTATIN CA 40 MG TABLET (FP) PO SCH (22:13)
[2023-09-14] MEDS: ATENOLOL 25 MG TABLET (FP) PO SCH (22:17)
[2023-09-15] MEDS: LOSARTAN POTASSIUM 50 MG TABLET PO SCH (09:48)
[2023-09-15] MEDS: SERTRALINE HCL 25 MG TABLET (FP) PO SCH (09:48)
[2023-09-15] MEDS: ALLOPURINOL 300 MG TABLET (FP) PO SCH (09:48)
[2023-09-15] MEDS: FUROSEMIDE 40 MG TABLET (FP) PO SCH (09:48)
[2023-09-15] MEDS: GABAPENTIN 300 MG CAPSULE PO SCH ×2 (09:49→21:12)
[2023-09-15] MEDS: CEFTRIAXONE 1 GM in DEXTROSE 5%-WATER - 50 ML IVPB SCH (09:49)
[2023-09-15] MEDS: ATORVASTATIN CA 40 MG TABLET (FP) PO SCH (21:12)
[2023-09-15] MEDS: ATENOLOL 25 MG TABLET (FP) PO SCH (21:13)
[2023-09-15] MEDS: FAMOTIDINE 40 MG TABLET PO SCH (21:13)
[2023-09-16] MEDS: GABAPENTIN 300 MG CAPSULE PO SCH ×2 (09:36→21:22)
[2023-09-16] MEDS: ALLOPURINOL 300 MG TABLET (FP) PO SCH (09:36)
[2023-09-16] MEDS: LOSARTAN POTASSIUM 50 MG TABLET PO SCH (09:36)
[2023-09-16] MEDS: CEFTRIAXONE 1 GM in DEXTROSE 5%-WATER - 50 ML IVPB SCH (09:36)
[2023-09-16] MEDS: FUROSEMIDE 40 MG TABLET (FP) PO SCH (09:36)
[2023-09-16] MEDS: SERTRALINE HCL 25 MG TABLET (FP) PO SCH (09:36)
[2023-09-16] MEDS: ATORVASTATIN CA 40 MG TABLET (FP) PO SCH (21:22)
[2023-09-16] MEDS: FAMOTIDINE 40 MG TABLET PO SCH (21:23)
[2023-09-16] MEDS: ATENOLOL 25 MG TABLET (FP) PO SCH (21:23)
[2023-09-17 07:20] VITALS: RESP 18
[2023-09-17] MEDS: GABAPENTIN 300 MG CAPSULE PO SCH (09:13)
[2023-09-17] MEDS: FUROSEMIDE 40 MG TABLET (FP) PO SCH (09:13)
[2023-09-17] MEDS: ALLOPURINOL 300 MG TABLET (FP) PO SCH (09:13)
[2023-09-17] MEDS: SERTRALINE HCL 25 MG TABLET (FP) PO SCH (09:14)
[2023-09-17] MEDS: LOSARTAN POTASSIUM 50 MG TABLET PO SCH (09:14)
[2023-09-17] MEDS: CEFTRIAXONE 1 GM in DEXTROSE 5%-WATER - 50 ML IVPB SCH (09:14)
[2023-09-17 14:28] VITALS: BP 150/65; PULSE 62; TEMP 97.8
== END 2023-09-17 16:45 | DRG 304 ==
LOC: JER 15:22 → JERBED 20:09 → J7W 09-05 09:27 → OBSVTOIN 09-05 10:13 → J7W 09-14 13:16
PROVIDERS: ADMIT Internal Medicine; ATTEND Internal Medicine
DX: I16.0 Hypertensive urgency (principal); I50.31 Acute diastolic (congestive) heart failure; N39.0 Urinary tract infection, site not specified; M16.11 Unilateral primary osteoarthritis, right hip; R31.9 Hematuria, unspecified; E78.5 Hyperlipidemia, unspecified
CPT/HCPCS: 0241U-QW; 36415; 70450-TC; 71045-TC-FY; 71101-TC-RT-FY; 73521-TC-FY; 76775-TC; 80048; 80053; 81003; 82962; 84484; 85025; 85027; 87077; 87086; 87186; 93005; 93010; 93306-TC; 97116-GP; 97162-GP; 99285-25; G0378